=== PATIENT | female | born 1995 | race American Indian/Alaskan Native ===

== ENCOUNTER 2019-04-30 13:22 | Emergency (ER) | payer SELFPAY ==
[2019-04-30 13:52] VITALS: BP 136/77
--- NOTE | 2019-04-30 13:52 | Event Note ---
ED Screening Note Date of service: 04/30/19 Time: 13:48 ED Screening Note: 23 y o female presents with left sided flank and abd pain, stabbing pain x 5 days ago, positive nausea, vomitting, This initial assessment/diagnostic orders/clinical plan/treatment(s) is/are subject to change based on patients health status, clinical progression and re- assessment by fellow clinical providers in the ED. Further treatment and workup at subsequent clinical providers discretion. Patient/guardian urged not to elope from the ED as their condition may be serious if not clinically assessed and managed. Initial orders include: ua,labs CT abd
[2019-04-30 15:05] LABS: Bacteria,Urine 2+ /HPF (Negative); Bilirubin,Urine NEG (Negative); Blood,Urine LG (Negative); Color,Urine Yellow (Yellow); Mucus,Urine FEW /HPF
== END 2019-04-30 15:00 | disposition left against medical advice (07) ==
LOC: ED 13:22
DX: R06.02 Shortness of breath (principal); N28.9 Disorder of kidney and ureter, unspecified; Z53.21 Procedure and treatment not carried out due to patient leaving prior to being seen by health care provider
CPT/HCPCS: 81001